=== PATIENT | male | born 2000 | race Caucasian/White ===

== ENCOUNTER 2020-01-06 16:11 | Emergency (ER) | payer MEDICAID ==
[~2020-01-06] VITALS: Ht 172.7 cm; Wt 70.0 kg
[2020-01-06] MEDS ORDERED: IBUP-1022 PO (16:18)
--- NOTE | 2020-01-06 16:41 | REP ---
INDICATION: possible trauma, swelling, discoloration COMPARISON: None. TECHNIQUE: For ease obtained. FINDINGS: No acute fracture or dislocation is seen. There is significant soft tissue swelling of the 5th digit. IMPRESSION: No fracture or dislocation. Significant soft tissue swelling of the 5th digit. No osseous destruction. <Electronically signed by Felipe Jameson > 01/06/20 0180
[2020-01-06] MEDS ORDERED: cefTRIAXone SOD 1 GM in D5W MINI-BAG PLUS 50 ML IV ONE (17:45)
[2020-01-06] MEDS ORDERED: LIDOCAINE 1% MDV 20ML VIAL SC ONE (17:45)
[2020-01-06] MEDS ORDERED: MORPHINE 4 MG/ML 1ML VIAL/SYRINGE (J2270) IV ONE (17:45)
[2020-01-06 18:21] LABS: BASO % 0.3 % (0.0-1.0); EOS # 0.3 10^3/uL (0.0-0.5); EOS % 2.4 % (0.0-3.0); HEMATOCRIT 42.4 % (42.0-52.0); HEMOGLOBIN 13.5 g/dl (13.5-17.5); LYMPH # 2.5 10^3/uL (1.5-5.0); LYMPH % 20.6 % (24.0-44.0); MEAN CORPUSCULAR HEMOGLOBIN 29.7 pg (27.0-33.0); MEAN CORPUSCULAR HGB CONC 31.8 g/dl (32.0-36.5); MEAN CORPUSCULAR VOLUME 93.2 fl (80.0-96.0); MONO # 1.4 10^3/uL (0.0-0.8); MONO % 11.3 % (0.0-5.0); NEUTROPHILS # 7.9 10^3/uL (1.5-8.5); PLATELET COUNT, AUTOMATED 435 10^3/uL (150-450); RED BLOOD COUNT 4.55 10^6/uL (4.30-6.10); WHITE BLOOD COUNT 12.2 10^3/uL (4.0-10.0)
[2020-01-06] MEDS ORDERED: HYDR-3713 PO (18:42)
[2020-01-06] MEDS ORDERED: DOXY100C37 PO (18:42)
[2020-01-06] MEDS ORDERED: DOXYCYCLINE HYCLATE 100MG TABLET PO ONE (18:45)
[2020-01-06 18:47] LABS: BLOOD UREA NITROGEN 13 MG/DL (7-18); CALCIUM LEVEL 8.6 MG/DL (8.5-10.1); CARBON DIOXIDE LEVEL 30 MEQ/L (21-32); CHLORIDE LEVEL 106 MEQ/L (98-107); CREATININE FOR GFR 0.63 MG/DL (0.70-1.30); GLUCOSE, FASTING 71 MG/DL (70-100); POTASSIUM SERUM 4.4 MEQ/L (3.5-5.1); SODIUM LEVEL 141 MEQ/L (136-145)
[2020-01-06 18:59] VITALS: BP 134/74
[2020-01-06 19:09] LABS: ERYTHROCYTE SEDIMENTATION RATE 10 mm/hr (0-15)
== END 2020-01-06 19:00 | disposition home or self-care (01) ==
LOC: M ED 16:11 → EEVIPCON 16:11 → M ED 19:00
DX: L02.512 Cutaneous abscess of left hand (principal); L03.011 Cellulitis of right finger; Z79.899 Other long term (current) drug therapy
CPT/HCPCS: 10060; 73140; 80048; 85025; 85652; 86140; 87040; 87070; 87077; 87186; 87205; 96365; 96375; 99284; J0696; J2270

== ENCOUNTER → 2021-12-27 | Outpatient (REF) | payer OTHER ==
[~2021-12-27] MED LIST: DOXY-443 PO; HYDR-3713 PO; IBUP-1022 PO
[2021-12-27 19:01] LABS: GC DNA AMPLIFICATION NEGATIVE (NEGATIVE)
== END ==
LOC: M LAB REF 16:27
PROVIDERS: ATTEND Family Medicine
DX: F11.20 Opioid dependence, uncomplicated (principal)